=== PATIENT | male | born 1975 | race Caucasian/White ===

== ENCOUNTER → 2025-06-15 | Outpatient (CLI) | payer SELFPAY ==
[2025-06-15 13:03] VITALS: PULSE 102; PULSE 108; PULSE 109; PULSE 75; PULSE 77; PULSE 98; PULSE 99; O2SAT 94; O2SAT 95; O2SAT 96
--- NOTE | 2025-06-24 13:18 | PCM.PSN.6M ---
PSN 6 Minute Walk Test 6 Minute Walk Test 6 Minute Walk Test: 6 Minute Walk Test PSN:6-Minute Walk Test Start: 06/15/25 13:01 Freq: Status: Active Protocol: RESP.6MINW Document 06/15/25 13:03 LE (Rec: 06/15/25 13:09 LE [id number]) 6 Minute Walk Test Date Performed 06/15/25 Time Performed 12:30 Height 5 ft 10 in Weight: 240 lb Weight in Pounds 240.[address]: Emiliano Leahy Assistive device None used: Pre-test Oxygen Delivery Room Air Method Pulse Ox (%) 95 Pulse Rate (60-100 77 beats/min) Dyspnea Mary Scale ( 0 0-10) Exertion Mary Scale 6 (6-20) 1st minute Oxygen Delivery Room Air Method Pulse Ox (%) 94 Pulse Rate (60-100 99 beats/min) 2nd minute Oxygen Delivery Room Air Method Pulse Ox (%) 94 Pulse Rate (60-100 98 beats/min) 3rd minute Oxygen Delivery Room Air Method Pulse Ox (%) 95 Pulse Rate (60-100 102 H beats/min) 4th minute Oxygen Delivery Room Air Method Pulse Ox (%) 94 Pulse Rate (60-100 109 H beats/min) 5th minute Oxygen Delivery Room Air Method Pulse Ox (%) 95 Pulse Rate (60-100 108 H beats/min) 6th minute Oxygen Delivery Room Air Method Pulse Ox (%) 96 Pulse Rate (60-100 108 H beats/min) Dyspnea Mary Scale ( 2 0-10) Exertion Mary Scale 11 (6-20) Post-test Oxygen Delivery Room Air Method Pulse Ox (%) 96 Pulse Rate (60-100 75 beats/min) Full Laps Walked 33 Partial Lap, Number 2 of Tiles Walked Total Distance 1949 Walked (ft) Interpretation Interpretation: The patient ambulated 1949 feet over the course of 6 minutes beginning on room air without assistive devices. Pretesting oxygen saturation was noted to be 95% on room air. With ambulation, the amanda oxygen saturation was 94%. There was no significant exertional oxygen desaturation. Recommendations Recommendations: There is no indication for the use of supplemental oxygen at this time.
== END | disposition home or self-care (01) ==
PROVIDERS: Referring Provider Internal Medicine Critical Care Medicine; Visit Provider Internal Medicine Critical Care Medicine
DX: R06.02 Shortness of breath (principal)
CPT/HCPCS: 94618

== ENCOUNTER → 2025-06-17 | Outpatient (CLI) | payer SELFPAY ==
--- OUTSIDE RECORDS SUMMARY | 2025-06-17 09:09 | XMS RPT_ITS | CCD ---
Author Organization [facility] Care Team Providers Care [employer] Name Role Phone Unavailable Primary Care Provider Unavailabl e SELF Referring Unavailable KELSEY CORREA Attending Unavailable Dr. Emiliano Leahy DO Attending Provider [phone] Emiliano Leahy Attending Unavailable Care Physician, No Primary Primary Care Unava ilable Emiliano Leahy Attending Unavailable Emiliano Leahy Referring Unavailable Emiliano Leahy Referring Unavailable Care Physician, No Primary Primary Care Unava ilable Emiliano Leahy Attending Unavailable Medications Current Medications Medication Drug Class(es) Dates Sig (Normalized) Sig (Original) calcium ascorbate 500 mg oral tablet (1 source) Start: 06-01-2025 take 1 tablet by mouth once daily Ascorbate Calcium (Vitamin C) 500 mg tablet Active 500 mg PO daily June 01, 2025 12:00am docosahexaenoic acid 200 mg oral capsule (1 source) Start: 06-01-2025 Docosahexaenoic Acid (Algal [place]-3 Dha) 200 mg capsule Active mg PO June 01, 2025 12:00am tropicamide 10 mg/ml ophthalmic solution (2 sources) Anticholinergic Start: 10-22-2024 End: 10-22-2024 tropicamide 1 % 1 Drop (MYDRIACYL) Start: 10-22-2024 End: 10-22-2024 1 Drop, BOTH EYES, DIRECT ED, Starting on Shirley 10/22/24 at 0830, Until Shirley 10/22/24 at 2028, Administer for dilation Completed/Discontinued Medications Medication Drug Class(es) Dates Sig (Normalized) Sig (Original) acetaminophen 325 mg / oxyCODONE hydrochloride 5 mg oral tablet (1 source) Opioid Agonist Start: 04-13-2016 End: 06-01-2025 Oxycodone-Acetamino phen 1 TABLET tablet Discontinued 1 {tbl} PO EVERY 4 HOURS NEEDED as needed for Pain 30 0 April 13, 2016 12:00am June 01, 2025 9:54am Problems Problem Classification Problem Date Documented Da te Episodic/Chronic Blindness and vision defects (2 sources) Bilateral hyperopia of eyes; Translations: [Hypermetropia, bilateral] Onset: 01-11-2020 10-22-2024 Episodic Other lower respiratory disease (2 sources) Dyspnea; Translations: [Shortness of breath] 06-01-2025 Episodic Other lower respiratory disease (2 sources) Shortness of breath; Translations: [Shortness of breath] Onset: 06-01-2025 Episodic Results Test Name Value Interpretation Reference Range Facil ity Pulmonary Visit Reporton Pulmonary Visit Report [facility] [address] [place] [address] OFFICE VISIT Date of Service: 06/01/25 MR#: [id number] Acct: [id number] Name: SOFIA SANTANA Rep #: [id number] : 1975 Provider: Dr. Emiliano Leahy DO Age/Sex: 49/M Location: [facility] Status: Signed Assessment and Plan Assessment and Plan (1) Shortness of breath: Status: Chronic Plan: The patient presented today for the evaluation of intermittent shortness of breath along with cough which is precipitated by exposure to cold air. He has never been formally diagnosed with asthma previously. The patient does not utilize any inhalers at his baseline. It is certainly plausible that the patient may have a case of mild, intermittent asthma which tends to be exacerbated when he is ill. However, at the present time, the patient does not have any overt respiratory symptoms. Accordingly, we will plan to obtain baseline pulmonary function studies and a 6-minute walk test. If his testing is unremarkable and the patient remains asymptomatic, he would likely benefit from having access to an albuterol rescue inhaler to be utilized as needed. Orders: Orders Simple Pulmonary Exercise Test 06/15/25 R06.02 - Shortness of breath PFT Complete - DLCO, Spirometry b/a bronchodilators, lung volumes 06/17/25 R06.02 - Shortness of breath Medications: Discontinued oxycodone-acetaminophe n 5-325 mg Discontinued Reason: Pt no longer taking 1 TAB PO Q4H PRN PRN 30 TABLETS 0RF Pain HPI HPI Comments Details: The patient is a 49-year-old male who presents to the clinic today in referral for the evaluation of breathing issues. The patient indicated that his breathing quality began to decline sometime in his mid 30s. His primary concerns are for that of exertional dyspnea along with occasional coughing, which tends to be precipitated by exposure to cold air. The patient also reported that he self diagnosed pneumonia 3 times over the last year. Despite all of the aforementioned, the patient lives an active lifestyle and reported that he works out and runs on the treadmill 4 times weekly. As a consequence of his workout schedule, the patient has lost approximately 20 to 25 pounds since mid October 2024. He has never been formally diagnosed with asthma previously. He is a lifelong non-smoker. He did not grow up in a smoking household. 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 He does currently keep 1 dog as a pet. However, the dog typically resides outside. He does report that when he becomes ill with that he will occasionally experience chest tightness and wheezing. He has never been diagnosed with any cardiac related issues. He denies a history of venous thromboembolic disease. He denies a history of seasonal allergic rhinitis. The patient does not utilize any inhalers at his baseline. Intake Vital Signs 06/01/25 07:03 Height 5 ft 10 in Weight: 247 lb BMI 35.4 BP 154/6 H Blood Pressure Location Lt brachial Position Sitting Respiration 18 Pulse 63 Pulse Source Monitor Temp 97.3 F L Temperature Source Temporal Artery Pulse Oximetry (%) 97 Oxygen Delivery Method room air Intake Visit Reasons: Breathing Issues Final Inspector Balance Wheel Required: No Accompanied by: Self Allergies No Known Allergies Allergy (Verified 06/01/25 09:53) Medications ???Medication ???Instructions ???Recorded ???Confirmed ???Type ascorbate calcium (vitamin C) 500 500 mg PO QDAY 06/01/25 06/01/25 History mg tablet docosahexaenoic acid 200 mg mg PO 06/01/25 06/01/25 History capsule (Algal [place]-3 DHA) [facility] Medical History (Updated 06/01/25 @ 10:[address] Emiliano Leahy, DO) Leg fracture, right Shortness of breath Pneumonia Family History (Updated 06/01/25 @ 09:58 by Ginger Kenny LPN) Brother Breast cancer Father Cancer prostate Grandfather Heart disease maternal Cancer lung - paternal Social History (Updated 06/01/25 @ 10:01 by Ginger Kenny LPN) household members: spouse and children number of children: 2 current occupational exposures/hazards: Yes pets and animals: Yes history of recent travel: No Smoking Status: Former smoker Tobacco: How many years used: 4 alcohol intake: current alcohol intake frequency: a few times a week substance use type: does not use caffeine: Yes what type of physical activity do you participate in: walking, running and weight training frequency: 3-4 times per week Review of Systems Resp Respiratory: Yes as per HPI Exam Const Constitutional: Positive conversant, cooperative, in no acute respiratory distress, well developed, well nourished, good hygiene and obese Head Head: Yes normocephalic and Yes atraumatic Eye (more content not included)... Normal [facility] Clinical Event Note-COVID RE Trevin 04-11-2020 Clinical Event Note-COVID RESULT Clinical Event: Clinical Event Note: TopicCOVID RESULT Details ATTEMPTED TO REACH PATIENT, VOICEMAIL LEFT Electronic Signatures: Sera Cadet (KAMARI) (Signed 11-Apr-2020 15:16) Authored: Clinical Event Last Updated: 11-Apr-2020 15:16 by Sera Cadet (KAMARI) Normal [facility] CORONAVIRUS 2019 BY PCRon CORONAVIRUS 2019,PCR DETECTED Abnormal Not Detected [facility] Comment on above: Order Comment: +COVI D CALLED RB TO ADALID CRESPO , 04/09/2020 11:34 Result Comment: Nega tive (NOT DETECTED) result does not preclude 2019-nCoV infection and should not be used as the sole basis for treatment or other patient management decisions. Negative results must be combined with clinical observations, patient history, and epidemiological information. Positive (DETECTED) result is for the presumptive identification of 2019-nCoV RNA. The 2019-nCoV RNA is generally detectable in upper and lower respiratory specimens during infection, however it can also be detected in stool. Positive results are indicative of active infection with 2019-nCoV but do not rule out bacterial infection or co-infection with other viruses. The agent detected may not be the definite cause of disease. INCONCLUSIVE and INVALID result signify that a negative or positive result could not be rendered often due to insufficient sample adequacy or quality. An INCONCLUSIVE result may also represent a low level positive result that cannot be called with a high degree of certainty. If clinically indicated, it is suggested that another sample be collected and retested. This test has not been cleared or approved by the FDA; however, the FDA has determined through the Emergency Use Authorization (EUA) process that such approval is not required at this time. This test is only authorized for the duration of time the declaration that circumstances exist to justify the authorization of the emergency use of in vitro diagnostic tests for the detection of SARS-CoV-2 virus and/or diagnosis of COVID-19 infection under section 564(b)(1) of the Act, 21 U.S.C. 360bbb-3(b)(1), unless the authorization is terminated or revoked sooner. [facility] ([facility]) is certified under CLIA-88 as qualified to perform high complexity testing. This tests analytical performance characteristics have been determined by [facility]. Testing is performed at [facility] is located at [address] [place] [address] (CLIA License #[id number], CAP #[id number]). +COVID CALLED RB TO ADALID CRESPO , 04/09/2020 11:34 Performed By: #### C OV19 #### [facility] [address] [place] [address] CORONAVIRUS 2019 BY PCRon Lab Specimen Source Nasal, Nasopharyngeal [facility] Comment on above: Order Comment: +COVI D CALLED RB TO ADALID CRESPO , 04/09/2020 11:34 Performed By: #### C OV19 #### [facility] [address] [place] [address] Vital Signs Date Time Vital Sign Value Performing Clinician Faci lity 06-01-2025 07:03-0400 Body height 177.[address] Emiliano Leahy DO Work Phone: [facility] 06-01-2025 07:03-0400 Body mass index (BMI) [Ratio] 35.4 kg/m2 Dr. Emiliano Leahy DO Work Phone: [facility] 06-01-2025 07:03-0400 Body temperature 97.3 [degF] Dr. Emiliano Leahy DO Work Phone: [facility] 06-01-2025 07:03-0400 Body weight 112.[address] Emiliano Leahy DO Work Phone: [facility] 06-01-2025 07:03-0400 Diastolic blood pressure 6 mm[Hg] Dr. Emiliano Leahy DO Work Phone: [facility] 06-01-2025 07:03-0400 Heart rate 63 /min Dr. Emiliano Leahy DO Work Phone: [facility] 06-01-2025 07:03-0400 Respiratory rate 18 /min Dr. Emiliano Leahy DO Work Phone: [facility] 06-01-2025 07:03-0400 SaO2% (BldA) [Mass fraction] 97 % Dr. Emiliano Leahy DO Work Phone: [facility] 06-01-2025 07:03-0400 Systolic blood pressure 154 mm[Hg] Dr. Emiliano Leahy DO Work Phone: [facility] Encounters Encounter Date Encounter Type Care Provider Facility Start: 06-17-2025 ambulatory No Primary Car e Physician Facility:[facility] Start: 06-15-2025 ambulatory Emiliano Leahy Facility:[facility] Start: 06-01-2025 End: 06-01-[address] [facility] Work Phone: Start: 06-01-2025 End: 06-01-2025 ambulatory Emiliano Leahy [facility] Start: 10-22-2024 End: 10-22-2024 ambulatory SELF Facility:[facility] Start: 10-22-2024 End: 10-22-2024 Patient encounter procedure Kelsey Correa OD Work Phone: Optometry Comment on above: Hyperopia of both ey es with astigmatism and presbyopia (Primary Dx) Plan of Treatment Date Care Activity Detail Author Start: 11-11-2025 End: 11-11-2025 Patient encounter procedure 11/11/2025 8:30 AM EST Office Visit [facility] [address] [place] [address] Kelsey Correa, OD [address] [place] [address] Eye exam./[facility] Comment on above: Eye exam./[facility] Start: 07-05-2024 Covid-19 Vaccine ( season) Covid-19 Vaccine ( season) [facility] Start: 07-05-2024 Influenza vaccination Influenza Vacc ine (#1) [facility] Start: 2022 Diabetes Screening Diabetes Screenin g [facility] Start: 2022 Screening for malign ant neoplasm of colon [facility] Start: 2012 Lipid panel Lipid Screening [facility] Start: 1996 Hepatitis B Vaccine (1 of 3 - 19+ 3-dose series) Hepatitis B Vaccine (1 of 3 - 19+ 3-dose series) [facility] Start: 1996 Urine microalbumin profile DTaP,Tdap,Td Vaccine (1 - Tdap) [facility] Start: 1995 Anxiety Screening Anxiety Screening [facility] Start: 1995 Depression Screening Depression Scre ening [facility] Start: 1995 Hepatitis C screening Hepatitis C Sc edward [facility] Start: 1995 HIV screening HIV Screening [facility] Measurement of respiratory function [facility] Walking distance 6 minutes [facility] Payers Date Payer Category Payer Self-pay 2025 Unknown [id number] 2019 Unknown [id number] 2019 Unknown [id number] Unknown [id number] Unknown [id number] Unknown [id number] Social History Date Type Detail Facility [facility]: [facility] Start: 01-11-2020 Tobacco use and exposure Smoke less tobacco non-user [facility] Start: 10-22-2024 Alcoholic beverage intake Life time non-drinker (finding) [facility] Start: 01-11-2020 History of Social function [facility] Start: 01-11-2020 Alcohol Use Disorder Identification Test - Consumption [AUDIT-C] [facility] Frequency of Alcohol Consumption Never [facility] Start: 1975 Sex assigned at Not on file [facility] Start: 06-01-2025 Tobacco smoking stat [facility] Ex-smoker (finding) [facility] Start: 1975 Sex Assigned At Male [facility] Progress note 10-22-2024 Note Date & Type Note Facility 10-22-2024 Note HNO ID: [id number] Author: KELSEY CORREA OD Service: ? Author Type: MACHINE III COREMAKER Type: Progress Notes Filed: 10/22/2024 08:23 Note Text: ASSESSMENT/PLAN: 1. Hyperopia of both eyes with astigmatism and presbyopia - ICD9: 367.0, 367.4, 367.20, ICD10: H52.03, H52.203, H52.4 Updated spectacle prescription, and educated patient to adaptation to new prescription. Recommend over the counter artificial tears twice a day, or more as needed for dry/ tired eyes. Good brands of tears are Systane, Refresh, Soothe, Blink, or Thereatears. Avoid drops for red eyes. Preservative free tears are best when using more than four times per day. Recommend taking breaks from computer/phone every 20-30 minutes, and to remember to blink when using electronics. Return to clinic with changes to vision, otherwise follow up yearly. Kelsey Correa, LILIBETH October 22, 2024 8:17 AM [facility] History of Present illness Narrative 10-22-2024 Kelsey Correa, OD - 10/22/2024 8:17 AM EST Note Date & Type Note Facility 10-22-2024 History of Presen t illness Narrative ASSESSMENT/PLAN: 1. Hyperopia of both eyes with astigmatism and presbyopia - ICD9: 367.0, 367.4, 367.20, ICD10: H52.03, H52.203, H52.4 Updated spectacle prescription, and educated patient to adaptation to new prescription. Recommend over the counter artificial tears twice a day, or more as needed for dry/ tired eyes. Good brands of tears are Systane, Refresh, Soothe, Blink, or Thereatears. Avoid drops for red eyes. Preservative free tears are best when using more than four times per day. Recommend taking breaks from computer/phone every 20-30 minutes, and to remember to blink when using electronics. Return to clinic with changes to vision, otherwise follow up yearly. Kelsey Correa, LILIBETH October 22, 2024 8:17 AM documented in this encounter [facility] Instructions 10-22-2024 Patient Instructions Note Date & Type Note Facility 10-22-2024 Instructions Kelsey Correa, OD - 10/22/2024 8:17 AM EST Recommend over the counter artificial tears twice a day, or more as needed for dry/ tired eyes. Good brands of tears are Systane, Refresh, Soothe, Blink, or Thereatears. Avoid drops for red eyes. Preservative free tears are best when using more than four times per day. Recommend taking breaks from computer/phone every 20-30 minutes, and to remember to blink when using electronics. Return to clinic with increase in symptoms, otherwise monitor as needed. documented in this encounter [facility] Evaluation note Note Date & Type Note Facility Evaluation note Diagnosis Hyperopia of both eyes with astigmatism and presbyopia- Primary documented in this encounter [facility] Evaluation note Note Date & Type Note Facility Evaluation note Diagnosis Onset Date Resolution Shortness of breath chronic June 01, 2025 9:45am [facility] Work Phone: Reason for referral (narrative) Note Date & Type Note Facility Reason for referral (narrative) No reason for referral information available [facility] Work Phone: Summary Purpose Family History No Family History Records Found Relationship Condition Age at Onset Recorded Date/T vicky brother Malignant neoplasm of breast Unknown father Malignant neoplasm Unknown grandfather Cardiac disease Unknown Malignant neoplasm Unknown Advance Directives No Advanced Directives Records FoundNo Advanced Directives Records FoundNo Advanced Directives Records Found Chief Complaint and Reason for Visit Chief Complaint Admit Date Breathing Issues June 01, 2025 9:45 am Reason for Visit Admit Date Shortness of breath June 01, 2025 9:45 am Additional Source Comments (unrecognized sect ion and content) No Status Records FoundNo Status Records FoundNo Status Records Found INFORMATION SOURCE (unrecogn ized section and content) DATE CREATED AUTHOR 06/29/2020 [facility] DATE CREATED AUTHOR AUTHOR'S ORGANIZ ATION 10/25/2024 [facility] DATE CREATED AUTHOR AUTHOR'S ORGANIZ ATION 06/17/2025 [facility] Source Comments (unrecognize d section and content) In the event this informatio n is protected by the Federal Confidentiality of Alcohol and Drug Abuse Patient Records regulations: The Federal rules restrict any use of the information to criminally investigate or prosecute any alcohol or drug abuse patient.[facility] Reason for Visit (unrecogniz ed section and content) Reason Comments Yearly Exam Care Teams (unrecognized sec tion and content) Team Status: Active Member Role/Relationship Status Dates Dr. Will Ferguson DO Family Provider Active Team Status: Inactive Member Role/Relationship Status Dates Dr. Emiliano Leahy DO Attending Provider Active S tart: June 01, 2025 End: June 01, 2025 Goals (unrecognized section and content) Goals may be documented in a n alternate section FOR RECORDS PERTAINING TO PATIENTS WHO ARE OR HAVE BEEN ENROLLED IN A CHEMICAL DEPENDENCY/SUBSTANCEABUSE PROGRAM, SOME INFORMATION MAY BE OMITTED. This clinical summary was aggregated from multiple sources. Caution should be exercised in using it in the provision of clinical care. This summary normalizes information from multiple sources, and as a consequence, information in this document may materially change the coding, format and clinical context of patient data. In addition, data may be omitted in some cases. CLINICAL DECISIONS SHOULD BE BASED ON THE PRIMARY CLINICAL RECORDS. [facility]. provides no warranty or guarantee of the accuracy or completeness of information in this document.
== END | disposition home or self-care (01) ==
LOC: PSN 08:31
PROVIDERS: Referring Provider Internal Medicine Critical Care Medicine; Visit Provider Internal Medicine Critical Care Medicine
DX: R06.02 Shortness of breath (principal)
CPT/HCPCS: 94060; 94726; 94729